=== PATIENT | male | born 1995 | race Caucasian/White ===

== ENCOUNTER 2024-04-25 20:27 | Emergency (ER) | payer OTHER ==
[~2024-04-25 20:27] MED LIST: Iopamidol 370 76% 100 ML VIAL ONE
[2024-04-25 20:50] LABS: #Basophils 0.07 10x3/uL (0.0-0.2); #Eosinophils 0.19 10x3/uL (0.0-0.5); #Monocytes 0.42 10x3/uL (0.0-1.1); #Neutrophils 3.11 10x3/uL (1.5-8.4); %Basophils 1.2 % (0.0-2.0); %Eosinophils 3.2 % (0.0-6.0); %Lymphocytes 35.5 % (18.0-47.0); %Monocytes 7.1 % (0.0-10.0); %Neutrophils 52.8 % (40.0-75.0); Hematocrit 41.8 % (38.8-50.0); Hemoglobin 15.1 g/dL (13.5-17.5); Mean Corpuscular HGB CONC 36.1 g/dL (32.0-36.0); Mean Corpuscular Hemoglobin 30.9 pg (27.0-33.0); Mean Corpuscular Volume 85.7 fL (81.2-95.1); Mean Platelet Volume 10.3 fL (7.4-10.4); Platelet Count 162 10x3/uL (150-450); RBC Distribution Width 12.3 % (11.5-14.5); Red Blood Cell (RBC) Count 4.88 10x6/uL (4.32-5.72); White Blood Cell (WBC) Count 5.89 10x3/uL (3.5-10.5)
[2024-04-25 21:01] LABS: INR-International Normal Ratio 1.1; PTT 28.2 sec (22.0-33.0); Prothrombin Time 11.8 sec (9.5-12.1)
[2024-04-25 21:05] LABS: ALT (SGPT) 28 U/L (Less than 45); AST (SGOT) 20 U/L (11-34); Albumin 4.4 g/dL (3.1-4.5); Alkaline Phosphatase 65 U/L (40-110); Anion Gap 12 mmol/L (10-20); BUN (Urea Nitrogen) 11 mg/dL (8.9-20.6); Bilirubin, Total 0.6 mg/dL (0.3-1.2); Calc. Creatinine Clearance 0 mL/min (70-130); Calcium 9.5 mg/dL (7.8-10.44); Carbon Dioxide 24 mmol/L (22-29); Chloride 108 mmol/L (98-107); Estimated GFR 92; Globulin 2.2 g/dL (2.4-3.5); Glucose 85 mg/dL (70-105); Potassium 4.3 mmol/L (3.5-5.1); Protein, Total 6.6 g/dL (6.0-8.3); Sodium 140 mmol/L (136-145)
[2024-04-25 21:09] LABS: Troponin I Less than 0.010 ng/mL (< 0.028)
[2024-04-25] MEDS ORDERED: Morphine 4 MG/ML VIAL ONE (22:09)
[2024-04-25] MEDS ORDERED: Ondansetron PF 4 MG/2 ML Vial ONE (22:10)
[2024-04-25] MEDS ORDERED: Acetaminophen 500 MG TAB ONE (22:10)
[2024-04-25] MEDS ORDERED: Enoxaparin 80 MG (0.8 mL) SYRINGE ONE (22:21)
[2024-04-26] MEDS ORDERED: HYDROcodone/Acetaminophen 5/325 mg Tablet ONE (00:27)
== END 2024-04-26 01:42 | disposition short-term general hospital (02) ==
LOC: CSHERS 20:27 → EEVIPCON 20:27 → CSHERS 04-26 01:42
DX: I82.411 Acute embolism and thrombosis of right femoral vein (principal); Z79.82 Long term (current) use of aspirin; Z79.01 Long term (current) use of anticoagulants
CPT/HCPCS: 71045; 71275; 80053; 83880; 84484; 85025; 85610; 85730; 93005; 96372; 96374; 96375; J1650; J2270; J2405; Q9967